=== PATIENT | female | born 1940 | race Caucasian/White ===

== ENCOUNTER 2022-10-21 13:21 | Outpatient (CLI) | payer MEDICARE | END 2022-10-21 13:22 | disposition home or self-care (01) | LOC: CSHCT 13:21 | PROVIDERS: ATTEND Family Medicine | DX: S22.070S Wedge compression fracture of T9-T10 vertebra, sequela (principal); S22.071D Stable burst fracture of T9-T10 vertebra, subsequent encounter for fracture with routine healing; M47.816 Spondylosis without myelopathy or radiculopathy, lumbar region; M48.07 Spinal stenosis, lumbosacral region; M25.78 Osteophyte, vertebrae; M51.27 Other intervertebral disc displacement, lumbosacral region; M41.86 Other forms of scoliosis, lumbar region | CPT/HCPCS: 72131 ==